=== PATIENT | male | born 1960 | race Caucasian/White ===

== ENCOUNTER 2022-05-03 12:11 | Outpatient (CLI) | payer OTHER ==
[~2022-05-03 12:11] MED LIST: Iopamidol 300 61% 100 ML VIAL FS ONE
== END 2022-05-03 12:12 | disposition home or self-care (01) ==
LOC: CSHCT 12:11
PROVIDERS: ATTEND Family Medicine
DX: R39.15 Urgency of urination (principal); N13.8 Other obstructive and reflux uropathy; N20.2 Calculus of kidney with calculus of ureter; N28.1 Cyst of kidney, acquired; K76.0 Fatty (change of) liver, not elsewhere classified
CPT/HCPCS: 74178; Q9967